=== PATIENT | male | born 1970 | race Caucasian/White ===

== ENCOUNTER → 2016-08-09 | Outpatient (CLI) | payer SELFPAY ==
[~2016-08-09] MED LIST: CIPRODEX 0.3%-7.5 ML OT; MOTRIN800 MG PO; TRIMOX500 MG PO
== END | disposition home or self-care (01) ==
LOC: RESCLI 02:54
DX: E11.65 Type 2 diabetes mellitus with hyperglycemia (principal); I10 Essential (primary) hypertension; N63 Unspecified lump in breast; R74.0 Nonspecific elevation of levels of transaminase and lactic acid dehydrogenase [LDH]; Z71.6 Tobacco abuse counseling; Z72.0 Tobacco use

== ENCOUNTER → 2016-08-17 | Outpatient (CLI) | payer SELFPAY ==
[2016-08-17 07:54] LABS: ALBUMIN 4.1 gm/dl (3.1-4.5); ALKALINE PHOSPHATASE 89 U/L (45-117); BILIRUBIN, DIRECT < 0.1 mg/dL (0.0-0.2); BILIRUBIN, TOTAL 0.5 mg/dl (0.2-1.0); CHOLESTEROL 234 mg/dL (<200); HDL CHOLESTEROL 34 mg/dl (40-60); LDL CHOLESTEROL 168 mg/dL (9-159); SGOT/AST 18 IU/L (3-35); SGPT/ALT 40 U/L (12-78); TOTAL PROTEIN 7.6 gm/dL (6.4-8.2); TRIGLYCERIDES 160 mg/dl (<150); VLDL CHOLESTEROL 32 mg/dL (6-40)
[2016-08-17 08:01] LABS: FREE T4 1.14 ng/dl (0.76-1.46); THYROID STIM HORMONE (HS) 0.916 uIU/ml (0.358-4.75)
[2016-08-17 08:16] LABS: HEMOGLOBIN A1c 8.5 % (4.8-5.6)
== END | disposition home or self-care (01) ==
LOC: LAB 06:51
PROVIDERS: Family Medicine
DX: E11.65 Type 2 diabetes mellitus with hyperglycemia (principal); N63 Unspecified lump in breast; R74.0 Nonspecific elevation of levels of transaminase and lactic acid dehydrogenase [LDH]

== ENCOUNTER → 2016-08-18 | Outpatient (CLI) | payer SELFPAY | END | disposition home or self-care (01) | LOC: US 00:51 | DX: N63 Unspecified lump in breast (principal); E11.65 Type 2 diabetes mellitus with hyperglycemia; R74.0 Nonspecific elevation of levels of transaminase and lactic acid dehydrogenase [LDH] ==

== ENCOUNTER → 2016-08-23 | Outpatient (CLI) | payer SELFPAY | END | disposition home or self-care (01) | LOC: RESCLI 03:52 | DX: I10 Essential (primary) hypertension (principal); E11.9 Type 2 diabetes mellitus without complications; E78.5 Hyperlipidemia, unspecified; Z72.0 Tobacco use; Z71.6 Tobacco abuse counseling ==

== ENCOUNTER → 2016-09-06 | Outpatient (CLI) | payer SELFPAY | END | disposition home or self-care (01) | LOC: RESCLI 04:16 | DX: E11.9 Type 2 diabetes mellitus without complications (principal); I10 Essential (primary) hypertension; E78.5 Hyperlipidemia, unspecified; Z72.0 Tobacco use; Z71.6 Tobacco abuse counseling ==

== ENCOUNTER → 2016-11-21 | Outpatient (CLI) | payer SELFPAY ==
[2016-11-21 08:20] LABS: HEMOGLOBIN A1c 5.9 % (4.8-5.6)
== END | disposition home or self-care (01) ==
LOC: LAB 06:48
PROVIDERS: Internal Medicine
DX: E11.65 Type 2 diabetes mellitus with hyperglycemia (principal)

== ENCOUNTER → 2016-11-29 | Outpatient (CLI) | payer SELFPAY | END | disposition home or self-care (01) | LOC: RESCLI 02:54 | DX: E11.65 Type 2 diabetes mellitus with hyperglycemia (principal); I10 Essential (primary) hypertension; E78.5 Hyperlipidemia, unspecified; Z72.0 Tobacco use; Z71.6 Tobacco abuse counseling ==

== ENCOUNTER → 2017-02-04 | Outpatient (CLI) | payer SELFPAY ==
[2017-02-04 07:41] LABS: HEMOGLOBIN 16.4 g/dl (14.0-18.0); MEAN CELL VOLUME 95.1 fl (80.0-94.0); MEAN CORPUSCULAR HGB 31.8 pg (27.0-31.0); MEAN CORPUSCULAR HGB CONC 33.5 g/dl (33.0-37.0); MEAN PLATELET VOLUME 9.5 fl (9.6-12.3); RED BLOOD COUNT 5.15 10*6/uL (4.50-5.90); RED CELL DISTRI WIDTH 12.6 % (0-14.5); WHITE BLOOD COUNT 13.6 10*3/uL (4.8-10.8)
[2017-02-04 08:10] LABS: ALKALINE PHOSPHATASE 104 U/L (45-117); BUN 20 mg/dl (7-24); CHLORIDE 104 mmol/L (98-107); CHOLESTEROL 214 mg/dL (<200); CREATININE 0.96 mg/dL (0.70-1.30); HDL CHOLESTEROL 37 mg/dl (40-60); LDL CHOLESTEROL 152 mg/dL (9-159); POTASSIUM 4.2 mmol/L (3.5-5.1); SGOT/AST 11 IU/L (3-35); SGPT/ALT 22 U/L (12-78); SODIUM 139 mmol/L (136-145); TOTAL PROTEIN 7.4 gm/dL (6.4-8.2); TRIGLYCERIDES 123 mg/dl (<150); VLDL CHOLESTEROL 25 mg/dL (6-40)
== END | disposition home or self-care (01) ==
LOC: LAB 07:13
PROVIDERS: Internal Medicine
DX: E11.65 Type 2 diabetes mellitus with hyperglycemia (principal)

== ENCOUNTER → 2017-02-07 | Outpatient (CLI) | payer SELFPAY | END | disposition home or self-care (01) | LOC: RESCLI | DX: E11.65 Type 2 diabetes mellitus with hyperglycemia (principal); I10 Essential (primary) hypertension; M19.90 Unspecified osteoarthritis, unspecified site; E78.5 Hyperlipidemia, unspecified; Z72.0 Tobacco use ==

== ENCOUNTER → 2017-03-06 | Outpatient (CLI) | payer SELFPAY | END | disposition home or self-care (01) | LOC: RESCLI 03:36 | DX: E11.65 Type 2 diabetes mellitus with hyperglycemia (principal) ==

== ENCOUNTER → 2017-07-01 | Outpatient (CLI) | payer SELFPAY | END | disposition home or self-care (01) | LOC: LAB 07:48 | DX: E11.65 Type 2 diabetes mellitus with hyperglycemia (principal) ==

== ENCOUNTER → 2017-11-08 | Outpatient (CLI) | payer SELFPAY ==
[2017-11-09 08:09] LABS: HEPATITIS B SURFACE AG Negative (Negative); HEPATITIS C VIRUS ANTIBODY <0.1 s/co (0.0-0.9)
== END | disposition home or self-care (01) ==
LOC: RESCLI 03:40
PROVIDERS: Student in an Organized Health Care Education/Training Program
DX: Z11.2 Encounter for screening for other bacterial diseases (principal); I10 Essential (primary) hypertension; E11.65 Type 2 diabetes mellitus with hyperglycemia; M25.50 Pain in unspecified joint; E78.5 Hyperlipidemia, unspecified; E66.9 Obesity, unspecified; F32.9 Major depressive disorder, single episode, unspecified; F41.9 Anxiety disorder, unspecified; Z72.0 Tobacco use; W57.XXXS Bitten or stung by nonvenomous insect and other nonvenomous arthropods, sequela

== ENCOUNTER → 2017-11-21 | Outpatient (CLI) | payer SELFPAY | END | disposition home or self-care (01) | LOC: RESCLI 03:12 | DX: E78.5 Hyperlipidemia, unspecified (principal); M79.7 Fibromyalgia; E11.65 Type 2 diabetes mellitus with hyperglycemia; R20.8 Other disturbances of skin sensation; I10 Essential (primary) hypertension; M25.50 Pain in unspecified joint; E66.9 Obesity, unspecified; F17.210 Nicotine dependence, cigarettes, uncomplicated; I48.91 Unspecified atrial fibrillation; F32.9 Major depressive disorder, single episode, unspecified; Z79.899 Other long term (current) drug therapy; Z68.30 Body mass index [BMI] 30.0-30.9, adult ==

== ENCOUNTER → 2018-08-15 | Emergency (ER) | payer SELFPAY ==
[~2018-08-15] VITALS: Ht 177.8 cm; Wt 97.5 kg
[~2018-08-15] MED LIST changes: +CYCLOBENZAPRINE10 MG PO; +IBU800 MG PO; +PREDNISONE50 MG PO
[2018-08-15 12:46] VITALS: BP 171/94
== END ==
LOC: ED 12:45
DX: S39.012A Strain of muscle, fascia and tendon of lower back, initial encounter (principal); M54.41 Lumbago with sciatica, right side; I10 Essential (primary) hypertension; E78.5 Hyperlipidemia, unspecified; E11.9 Type 2 diabetes mellitus without complications; X50.0XXA Overexertion from strenuous movement or load, initial encounter; Y93.89 Activity, other specified; Y92.89 Other specified places as the place of occurrence of the external cause; Y99.8 Other external cause status

== ENCOUNTER 2019-03-24 17:43 | Inpatient (IN) | payer SELFPAY ==
[~2019-03-24] VITALS: Ht 172.7 cm; Wt 93.0 kg
--- NOTE | ~2019-03-24 | CON ---
[place], [place] REPORT OF CONSULTATION [id number] #: [id number] ROOM: 416 DOCTOR: PHD CASEY MIRIAM BIRTHDATE: [birth year] DOS: 03/26/2019 HISTORY OF PRESENT ILLNESS: The patient is a 48-year-old male referred by the hospitalist due to the patient's history of bipolar disorder. He has been unmedicated for some time. The patient presented to the ED with hallucinations and agitation. He had been experiencing delusions and hallucinations for about 1 week. The patient lives with his . He has 2 children and is unemployed. He denies alcohol use. He typically smokes 2 packs of cigarettes daily, but has not been able to smoke due to issues with pneumonia for the past 2 weeks. He reports that he vapes marijuana and believes that this caused his lung issues. PAST MEDICAL HISTORY: Bipolar 1 disorder, diabetes, elevated liver enzymes, essential hypertension, fibromyalgia, hyperlipidemia, inflammatory bowel disease, low back strain, muscle spasm. MEDICATIONS: Vitamin D, Solu-Medrol, Protonix, Zestril, Nicoderm, Mucinex, Pulmicort Respules, DuoNeb, Levaquin, Rocephin, morphine sulfate, [place] 5/325, Tamiflu. PHYSICAL EXAMINATION: The patient was lying comfortably in bed, in no apparent distress. He was awake, alert and oriented to person, place and generally to time. Mood was anxious. Affect was restricted in range. He denied suicidal and homicidal ideation, plan, and intent. Speech was within normal limits with respect to rhythm, rate, volume and tone. The patient did not always respond to questions appropriately. Thought process was circumstantial. He reported seeing people standing next to the curtain and sitting in a chair, but was able to recognize them are real. He followed with Dr. Humphrey's office in the past, but has not been receiving mental health treatment for many years. He states he did not like the way the medications made him feel that he was not able to name any medications he had taken. DIAGNOSES: 1. Bipolar 1 disorder. 2. Delirium, not otherwise specified. RECOMMENDATIONS: I discussed the patient with Dr. Valverde. He recommends starting the patient on Latuda 40 mg at bedtime. The patient would benefit from following up with mental health services as an outpatient. Thank you very much for this consult. [place], [place] REPORT OF CONSULTATION NAME: PHILIPP SOSA UNIT #: [id number] ROOM: [facility] DOCTOR: CASEY, PHD MIRIAM BIRTHDATE: [birth year] Rosemary Valiente, PhD CM:CONSTR:REPORT OF CONSULTATION 1659 03/29/19 0843 interface
--- NOTE | ~2019-03-24 | PR ---
[place], [place] PROGRESS NOTE [id number] UN[facility] #: [id number] ROOM: [facility] DOCTOR: STACIE JACKSON MD,FABIEN BIRTHDATE: [birth year] DOS: 03/26/2019 SUBJECTIVE: The patient was seen and examined on 03/26/2019. He has been still reported with symptoms of coughing, chest congestion and also noted with increased wheezing today. Shortness breath was still noted as well. There were no symptoms of chest pain. He does not have symptoms of hemoptysis. He had not been noted with any symptoms of confusion this morning. Comfortably resting on the bed this morning of assessment. The remaining systems were reviewed they were noted all negative. OBJECTIVE: VITAL SIGNS: Temperature noted as normal, curve of temperature has low grade 99.5 degrees Fahrenheit, normal temperature, respiratory rate 23, heart rate of 82, blood pressure 152/75 recorded. Pulse oxygen saturation on 2 liters nasal cannula 96% saturation this morning. HEENT: Examination shows head was atraumatic. Eyes nonicterus. NECK: Supple. CARDIOVASCULAR: S1, S2 audible. LUNGS: Auscultation of chest noted decreased breath sounds bilaterally, diffuse expiratory wheezing noted, which has worsened significantly from the previous exam. ABDOMEN: Soft, nontender. Bowel sounds present. EXTREMITIES: Without any acute edema. MUSCULOSKELETAL: Without any acute deformities. CENTRAL NERVOUS SYSTEM: Noted essentially intact. LABORATORY DATA: CBC of this morning, WBC count 14.8, hemoglobin 11.4, platelet count was normal. The BMP this morning, normal BUN and creatinine. Potassium 3.1. IMPRESSION: 1. Multilobar pneumonia, large consolidation noted left upper lobe lingula with ground glass opacity in other lobes of the lungs. 2. Acute exacerbation of chronic obstructive pulmonary disease was also noted. 3. History of psychiatric problem as well. 4. Chronic heavy nicotine abuse. PLAN OF MANAGEMENT: Continue antibiotics, bronchodilators, and oxygen supplementation. Start the patient on Solu-Medrol 40 mg q. 8 hours because of the active wheezing with acute exacerbation of chronic obstructive pulmonary disease. Continue bronchodilators. Obtain a chest x-ray in the morning PA and lateral view to assess the progression of the pneumonia. Other additional treatment changes will be made based on the available tests, which has been sent to the lab for this patient. Usual care. Other therapy, plan of management, care plan for treatment. [place], [place] PROGRESS NOTE [facility]: [id number] UNIT #: [id number] ROOM: [facility] DOCTOR: STACIE JACKSON MD,FABIEN BIRTHDATE: [birth year] FABIEN QUINONES MD CM:PNTRANS [id number] FABIEN JACKSON MD 03/26/19 1305 interface
--- NOTE | ~2019-03-24 | O ---
[place], [place] OPERATIVE NOTE NAME: PHILIPP SOSA UNIT #: [id number] ROOM: [facility]- DOCTOR: KIZZY HOLLOWAY,SULY BIRTHDATE: [birth year] DOS: 03/27/2019 Today's procedure part of investigation of borderline anemia, abdominal pain is panendoscopy plus biopsy. PREMEDICATION: Propofol. SCOPE: Olympus forward-viewing gastroscope Q10 video. REPORT: After putting the patient in left lateral position and application of lubricant to the scope. The scope was introduced thereafter, under direct visualization, advanced through the length of esophagus into gastric pouch into duodenal bulb. Hiatal hernia seen, gastritis noticed, duodenitis, duodenal erosions and some degraded blood in the duodenum was noticed, photographed. Antrum was biopsied. The patient extubated, tolerated the procedure well. IMPRESSION: Hiatal hernia, duodenitis, duodenal erosion, gastritis. PLAN AND DISCUSSION Carafate 2 grams q.i.d., Protonix 40 mg IV b.i.d. Labs and records have been already reviewed. Hyponatremia has been corrected. Hypokalemia has been corrected. His albumin 2.3. Liver function test elevation at 650 and 185 noticed. Alkaline phosphatase normal, bilirubin has been normal. Basic basic metabolic panel has been corrected. PLAN AND DISCUSSION: Workup in progress. We will follow up. SULY DURAND MD CM:OPRECORD:OPERATIVE NOTE [phone] SULY DURAND MD 03/27/19 2240 interface
--- NOTE | ~2019-03-24 | CON ---
[place], [place] REPORT OF CONSULTATION [id number] UNIT #: [id number] ROOM: [facility] DOCTOR: FABIEN GALE MD BIRTHDATE: [birth year] DOS: 03/25/2019 PULMONARY CONSULTATION, EVALUATION, AND MANAGEMENT CONSULTATION REQUESTED BY: Hospitalist service. REASON FOR CONSULTATION: Assessment of acute pneumonia. HISTORY OF PRESENT ILLNESS: This is a 48-year-old male patient who has been known with past history of nicotine abuse. The patient presented to the Emergency Room on the date of ____ brought by the family members. The patient has been noted with visual hallucinations. He has been noted some change in mental status. The patient came into the Emergency Room by the ambulance. The patient admitted to the hospital for further care. He has been reporting intermittent symptoms of nausea, vomiting as well as black tarry stools are also reported by the patient in the history obtained by the ER physician. He has been noted with cough with some sputum expectoration stated. There were no symptoms of hemoptysis or chest pain stated by the patient. The patient denies any symptoms of chest trauma. REVIEW OF SYSTEMS: CONSTITUTIONAL: The patient has been reported symptoms of fever or chills at home, also complained of some body aches. The patient stated that the body aches have been resolved. Symptoms have been present about 2-3 days. EYES: Denies any burning, discharge, redness or diplopia. EAR, NOSE, THROAT SYMPTOMS: No sore throat, hoarseness, otalgia, postnasal drainage or epistaxis. CARDIOVASCULAR: Denies angina pain, edema, or pain of lower extremities. GASTROINTESTINAL SYMPTOMS: Denies dysphagia, nausea, vomiting, diarrhea, abdominal pain, hematemesis, melena currently, but noted with significant GI symptoms prior to the hospitalization. GENITOURINARY SYMPTOMS: No dysuria, suprapubic pain, or hematuria. MUSCULOSKELETAL: No acute joint pain, redness, or tenderness. SKIN: Denies abnormal lesions or rashes. CENTRAL NERVOUS SYSTEM: No dizziness, headache, diplopia, or syncopal episodes. PSYCHIATRIC: The patient has a known history of bipolar disorder in the past and has been treated for that. PAST MEDICAL HISTORY: The patient reported as history of type 2 diabetes mellitus and bipolar disorder. SOCIAL HISTORY: The patient stated that he lives at home by himself. Tobacco use reported up to 3 packs of cigarettes per day. Stated not smoking cigarettes. The history was questioned. In the ER, the patient has been noted vaping nicotine. He stated he is and has 2 children. PAST SURGICAL HISTORY: None, stated by the patient. FAMILY HISTORY: Unknown. [place], [place] REPORT OF CONSULTATION NAME: PHILIPP SOSA UNIT #: [id number] ROOM: [facility] DOCTOR: FABIEN GALE MD BIRTHDATE: [birth year] HOME MEDICATIONS: None reported. CURRENT MEDICATIONS: Which were administered on this hospitalization were noted as use of IV Rocephin, Zithromax, bronchodilators and some other meds. DRUG ALLERGIES: The patient noted no known drug allergies. PHYSICAL EXAMINATION: GENERAL: A 48-year-old male patient appeared to be awake, alert and oriented at this time of assessment in the Intensive Care Unit. Height of 5 feet 8 inches, weight of 205 pounds, BMI 31 reported by the nursing staff. VITAL SIGNS: Temperature noted 102 degrees Fahrenheit at midnight and on admission temperature 98.9 degree Fahrenheit, respiratory rate recorded 18-25, heart rate 97-107, blood pressure 156/60 to 170/77 recorded. Pulse oxygen saturation at rest on room air was 95%, currently 2 liters nasal cannula 96% saturation. HEENT: Examination shows head was atraumatic. Eyes nonicterus. NECK: Supple. CARDIOVASCULAR: S1, S2 audible. LUNGS: Noted mild diffuse bilateral expiratory wheezing. There were no crackles. ABDOMEN: Soft, nontender. Bowel sounds present. EXTREMITIES: The patient without any edema, clubbing, or cyanosis. MUSCULOSKELETAL: Without acute deformities. CENTRAL NERVOUS SYSTEM: Appeared to be grossly noted intact. LABORATORY DATA: The PT, PTT that was done yesterday was normal. Lactic acid 2.0. The CBC that was done yesterday, WBC count 12.9, hemoglobin and hematocrit normal, platelet count normal, 94% neutrophils, the patient noted the differentials. CMP yesterday, BUN 33, creatinine normal, and glucose 220. Sodium 129, chloride of 97. AST and ALT were noted elevated. Troponin was also elevated minimally at 0.076. Urine drug screen was completed on admission was noted positive for THC. Troponin second set remains minimally elevated. CT scan of the head that was completed yesterday evening in the Emergency Room, was noted without any acute intracranial abnormalities. CMP that was done this morning, his BUN 27 and creatinine normal. Sodium 134, potassium 3.3. Phosphorus was 2.4. Alcohol level yesterday on admission was noted as less than 3. CBC this morning, WBC count 13.4, hemoglobin 12.8, hematocrit 37.3, platelet count was normal, 93% segmented neutrophils. Chest x-ray noted for the patient, acute consolidation changes noted in the left upper lobe. CTA of the chest with diagnosis for pulmonary embolism because of incorrect timing for pulmonary embolus injection. Large area of consolidation noted involving all of the left upper lobe as well as significant part of the lingula. A bronchogram was noted. Patchy ground-glass opacity noted in the right upper lobe, superior segment of the right lower lobe as well. There were no pleural effusions or any significant visible lymph nodes were of any concern. CT scan of the abdomen and pelvis was done yesterday in the Emergency Room was reported, no acute abnormal finding of the CT scan of the abdomen and pelvis. IMPRESSION: The patient with multilobar pneumonia with finding of visual [place], [place] REPORT OF CONSULTATION NAME: PHILIPP SOSA UNIT #: [id number] ROOM: [facility] DOCTOR: STACIE JACKSON MD,[facility] BIRTHDATE: [birth year] hallucination. No change in mental status, evidence of hyponatremia, abnormal LFTs as well as hypophosphatemia, highly suggestive of atypical infection with multilobar involvement, possible Legionella pneumonia would be considered. Other differential to be excluded as a viral infection as influenza pneumonia of viral etiology. However, bacterial pneumonia such as a lobar pneumonia resulting from the streptococcal pneumonia, the patient also remains in consideration. History of chronic nicotine abuse as well. The patient has been also noted with vaping nicotine in the Emergency Room, but denying during this hospitalization upon history assessment. PLAN OF MANAGEMENT: The patient's antibiotic, patient's Bactrim will be changed, use of IV Rocephin and Levaquin will be better adequate coverage. Antiviral therapy will be started for the influenza infection until further exclusion will be done with serum antibiotics for this patient to be done if necessary, but initially is to take the viral swab. Respiratory virus panel will be ordered as well. Nicotine replacement patches to overcome the nicotine withdrawal. If occurred on this admission, bronchodilator ____. Urine for Legionella antigen, strep antigens will be obtained. Sputum for Gram stain culture will be done as well. Monitor all the culture results. Other therapy, plan of management. Additional treatment changes will be made for this patient based on the progression of the illness. Closely monitor the patient's progression of the current pneumonia, multilobar pneumonia, and respiratory status in the Intensive Care Unit as well. If the patient does show any manifestation symptoms of psychosis, certainly Psychiatry consultation will be obtained; however, at this time, is not needed. Thanks for allowing me to participate in the care of this patient. FABIEN QUINONES MD CM:CONSTR:REPORT OF CONSULTATION 1203 03/25/19 1428 interface
--- NOTE | ~2019-03-24 | CON ---
[place], [place] REPORT OF CONSULTATION NAME: PHILIPP SOSA UNIT #: [id number] ROOM: [facility] DOCTOR: SULY DURAND MD BIRTHDATE: [birth year] DOS: 03/27/2019 HISTORY OF PRESENT ILLNESS: A 48-year-old patient who has presented with multiple medical history, among which has been alcohol and nicotine dependency shortness of breath and guaiac positivity and concerns about such nausea, epigastric distress. I have been asked for assessment of the patient regarding possible endoscopy. PAST MEDICAL HISTORY: Associated with fibromyalgia, hyperlipidemia, inflammatory bowel disease, history of Crohn's disease, diabetes mellitus, bipolar disorder, systemic hypertension. MEDICATIONS: List has been reviewed. SOCIAL HISTORY: Smoker, alcohol consumer. FAMILY HISTORY: Noncontributory. PAST SURGICAL HISTORY: None. FAMILY HISTORY: Noncontributory. ALLERGIES: No known medication. REVIEW OF SYSTEMS: HEENT: Denies double vision, blurred vision. RESPIRATORY: Denies acute shortness of breath. CARDIOVASCULAR: Denies chest pain. DIGESTIVE SYSTEM: Epigastric distress, abdominal pain. PHYSICAL EXAMINATION: VITAL SIGNS: Stable. HEENT: Within normal limit. NECK: Supple, no thyromegaly, no cervical lymphadenopathy. CHEST: Symmetric anatomy, equal expansion. No wheeze, no rhonchi. HEART: Normal sinus rhythm, no gallop, no murmur. ABDOMEN: Soft. No hepato-organomegaly. Bowel sounds present. No pulsatile mass. EXTREMITIES: No cyanosis, no pedal edema. NEUROLOGIC: Alert, oriented to time, place, person. LABORATORY DATA: Reviewed. H and H of 11 and 34, white blood cell was 11, platelet 300+. Urinalysis, no bacteria. Basic metabolic periodically reassessed renal status normal. Cultures were within normal limit. PLAN AND DISCUSSION: We are going to proceed with endoscopic assessment of upper tract. Thank you very much [place], [place] REPORT OF CONSULTATION NAME: PHILIPP SOSA UNIT #: [id number] ROOM: [facility] DOCTOR: SULY DURAND MD BIRTHDATE: [birth year] SULY DURAND MD CM:CONSTR:REPORT OF CONSULTATION 1634 03/27/19 2236 interface
--- NOTE | ~2019-03-24 | PR ---
[place], [place] PROGRESS NOTE NAME: PHILIPP SOSA [facility] #: [id number] UNIT #: [id number] ROOM: 416 DOCTOR: STACIE JACKSON MD,FABIEN BIRTHDATE: [birth year] DOS: 03/28/2019 PULMONARY PROGRESS NOTE SUBJECTIVE: The patient noted comfortable at this time without any acute distress this morning of assessment. Urine for Legionella antigen, the patient became aware of, that confirmed the diagnosis of Legionella pneumonia. Denies symptoms of fever or chills, has been doing well with the current treatment. Denies symptoms of hemoptysis, nausea, vomiting, diarrhea, abdominal pain, hematemesis, melena, or hematochezia. Remaining systems were reviewed, they were noted all negative. OBJECTIVE: GENERAL: The patient noted comfortable at this time, sitting on the bed without any distress this morning of assessment. VITAL SIGNS: Blood pressure 152/72, heart rate of 80, respiratory rate 18, temperature noted as normal. The pulse oxygen at rest on room air 98% saturation recorded. HEENT: Examination shows head was atraumatic. Eyes nonicterus. NECK: Supple. CARDIOVASCULAR: S1, S2 is audible. LUNGS: Decreased breath sounds still noted in the left side. Mild expiratory wheezing was present. ABDOMEN: Soft, nontender. Bowel sounds present. EXTREMITIES: Without any acute edema. LABORATORY DATA: The patient's urine Legionella antigen was noted positive. Influenza A antibody noted elevated, but there had not been noted either IgM or IgG, unable to differentiate if there is any acute infection or is a past infection resulting in elevation of the IgG antibodies. IMPRESSION: 1. Resolving acute exacerbation of chronic obstructive pulmonary disease. 2. History of nicotine dependence. PLAN OF MANAGEMENT: Discontinue other antibiotics, Tamiflu has already completed and that will be discontinued as well. If there is any influenza infection will be noted, the patient will need 10-14 days of Levaquin for complete the treatment of the Legionella pneumonia. Obtain a chest x-ray in the morning to assess the progression of the pneumonia prior to consideration of home discharge. Discharge planning was discussed with Dr. Yvon Dahl as well. The dose of steroids continued to be decreased. The Solu-Medrol dose will be decreased to 40 mg daily from b.i.d. dosing from today. [place], [place] PROGRESS NOTE NAME: PHILIPP SOSA UNIT #: [id number] ROOM: 416 DOCTOR: FABIEN GALE MD BIRTHDATE: [birth year] FABIEN QUINONES MD CM:ALEXYS [phone] FABIEN JACKSON MD 03/28/19 1404 interface
--- NOTE | ~2019-03-24 | PR ---
[place], [place] PROGRESS NOTE NAME: PHILIPP SOSA UNIT #: [id number] ROOM: [facility] DOCTOR: FABIEN GALE MD BIRTHDATE: [birth year] DOS: 03/27/2019 SUBJECTIVE: The patient noted comfortable at this time without any acute distress this morning of assessment. He has not been noted symptoms of chest pain. Cough is noted only scant amount of sputum expectoration or symptoms of fever, chills or any hemoptysis. Denies symptoms of nausea, vomiting, diarrhea, abdominal pain, hematemesis, melena, or hematochezia remains in the Intensive Care Unit. Remaining systems were reviewed. They were noted all negative. OBJECTIVE: VITAL SIGNS: Normal temperature, respiratory rate 18, heart rate of 96, blood pressure 137/79. This afternoon, heart rate noted 106 per patient previously. HEENT: Examination shows head was atraumatic. Eyes nonicterus. NECK: Supple. CARDIOVASCULAR: S1, S2 audible. LUNGS: Decreased breath sounds noted on the left side as previously. ABDOMEN: Soft, nontender. Bowel sounds present. EXTREMITIES: No new change. MUSCULOSKELETAL: Chronic deformity. CENTRAL NERVOUS SYSTEM: Intact. LABORATORY DATA: The patient's chest x-ray done this morning showed persistent infiltration previously noted left upper lobe consolidation without interval development of any acute infiltration or pleural effusions. CBC this morning, WBC count 11.3, hemoglobin 11.8, platelet count normal. Culture of the sputum, normal mary. Urine culture noted negative. BMP noted as BUN 26, creatinine was normal. Potassium 3.4. IMPRESSION: 1. The patient with acute multilobar pneumonia consolidation and the patchy infiltration in the lungs noted. 2. Chronic obstructive pulmonary disease. 3. Nicotine dependence. Multiple other medical illnesses as noted stable. PLAN OF MANAGEMENT: No changes in plan of care at this time. Continuation of the current therapy patient as this morning. Usual care. All other supportive plan of management, care plan treatment. [place], [place] PROGRESS NOTE NAME: PHILIPP SOSA UNIT #: [id number] ROOM: [facility] DOCTOR: FABIEN GALE MD BIRTHDATE: [birth year] FABIEN QUINONES MD CM:ALEXYS 2108 FABIEN JACKSON MD 03/28/19 0109 interface
--- NOTE | ~2019-03-24 | EKG ---
[place], [place] ELECTROCARDIOGRAM REPORT NAME: PHILIPP SOSA UNIT #: [id number] ROOM: [facility] DOCTOR: NANI DRAFT REPORT BIRTHDATE: [birth year] [facility] Test Date: 2019-03-24 Test Time: 18:12:12 Pat Name: PHILIPP SOSA Department: Room: [facility] Gender: M [employer]: : 1970 Requested By: KAREN IRVIN Order Number: [id number] Reading MD: Bonnie Rodriguez Measurements Intervals [place] Rate: 104 P: 53 [place]: 135 QRS: 93 QRSD: 105 T: 30 QT: 342 QTc: 450 Interpretive Statements Sinus tachycardia Borderline right axis deviation ST elev, probable normal early repol pattern Baseline wander in lead(s) V4 Electronically Signed On 03-25-2019 11:15:25 PST by Bonnie Rodriguez CM:EKGRPT:ELECTROCARDIOGRAM REPORT 1812 1115 KAREN CARDOZA DRAFT REPORT KAREN IRVIN MD
--- NOTE | ~2019-03-24 | PR ---
[place], [place] PROGRESS NOTE [id number] UNIT #: [id number] ROOM: 416 DOCTOR: STACIE JACKSON MD,FABIEN BIRTHDATE: [birth year] DOS: 03/29/2019 SUBJECTIVE: The patient noted comfortable at this time, resting on the bed this morning of assessment, has not been noted symptoms of fever or chills. Coughing has improved. There were no symptoms of chest pain or hemoptysis. OBJECTIVE: VITAL SIGNS: For the patient which were recorded this morning has a normal temperature, respiratory rate 18, heart rate 89, blood pressure 170/72. Pulse oxygen saturation at rest on room air 91% saturation. HEENT: Examination shows head was atraumatic. Eyes nonicterus. NECK: Supple. CARDIOVASCULAR: S1, S2 audible. LUNGS: The patient noted without any wheeze or crackles. ABDOMEN: Soft, nontender. Bowel sounds present. EXTREMITIES: No new change. LABORATORY DATA: Urine for legionella antigen noted positive. Chest x-ray done this morning noted resolving large consolidation of the left upper lobe and lingula. IMPRESSION: 1. Resolving acute Legionella pneumonia with acute influenza infection as well, but not considered to have acute pneumonia and Legionella. 2. The patient with chronic obstructive pulmonary disease and nicotine dependence. PLAN OF TREATMENT: The patient could be discharged home on oral tapering dose of prednisone, antibiotics as Levaquin is the preferred drug. Total of 14 days of treatment was advised. Outpatient followup was advised in the next couple of weeks. FABIEN QUINONES MD CM:PNTRANS [id number] FABIEN JACKSON MD 03/29/19 1645 interface
[2019-03-24 17:43] VITALS: BP 152/84
[2019-03-24 18:10] LABS: HEMOGLOBIN 14.3 g/dl (14.0-18.0); MEAN CELL VOLUME 87.1 fl (80.0-94.0); MEAN CORPUSCULAR HGB 31.2 pg (27.0-31.0); MEAN CORPUSCULAR HGB CONC 35.8 g/dl (33.0-37.0); MEAN PLATELET VOLUME 10.8 fl (9.6-12.3); PLATELET COUNT AUTOMATED 194 10*3/uL (130-400); RED BLOOD COUNT 4.59 10*6/uL (4.50-5.90); RED CELL DISTRI WIDTH 12.8 % (0-14.5); WHITE BLOOD COUNT 12.9 10*3/uL (4.8-10.8)
[2019-03-24 18:21] LABS: ACT PARTIAL THROMBO TIME 27.9 SECONDS (20.0-32.1); INTERNATIONAL NORM RATIO 1.1 (2.0-3.5)
[2019-03-24 18:27] LABS: ALBUMIN 2.3 gm/dl (3.1-4.5); ALKALINE PHOSPHATASE 92 U/L (45-117); BUN 33 mg/dl (7-24); CHLORIDE 97 mmol/L (98-107); POTASSIUM 3.7 mmol/L (3.5-5.1); SGOT/AST 657 IU/L (3-35); SGPT/ALT 185 U/L (12-78); SODIUM 129 mmol/L (136-145); TOTAL PROTEIN 6.1 gm/dL (6.4-8.2)
[2019-03-24 18:29] LABS: TROPONIN I 0.076 ng/ml (<0.045)
[2019-03-24 18:32] LABS: TOTAL CELLS COUNTED 100 #CELLS
[2019-03-24 18:33] LABS: PLATELET SUFFICIENCY NORMAL (NORMAL); THYROID STIM HORMONE (HS) 0.341 uIU/ml (0.358-4.75)
[2019-03-24 18:35] LABS: ETHYL ALCOHOL < 3.0 mg/dl (<3)
[2019-03-24 19:05] LABS: BILIRUBIN NEGATIVE (NEGATIVE); BLOOD 3+ (NEGATIVE); CLARITY SL CLOUDY (CLEAR); COLOR YELLOW (YELLOW); GLUCOSE 3+ (NEGATIVE); KETONE NEGATIVE (NEGATIVE); LEUKO ESTERASE NEGATIVE (NEGATIVE); NITRITE NEGATIVE (NEGATIVE); PH 6.5 (5.0-9.0); UROBILINOGEN 0.2 E.U./dl (0.2-1.0)
[2019-03-24 19:11] LABS: BACTERIA 1+; MUCOUS 1+
[2019-03-24 19:15] LABS: URINE AMPHETAMINES < 1000 (1000ng/ml); URINE BARBITURATES < 200 (200ng/ml); URINE BENZODIAZEPINES < 200 (200ng/ml); URINE CANNABINOIDS (THC) > 50 (50ng/ml); URINE COCAINE < 300 (300ng/ml); URINE METHADONE < 300 (300ng/ml); URINE OPIATES < 300 (300ng/ml); URINE PHENCYCLIDINE < 25 (25ng/ml)
[2019-03-24 19:59] VITALS: BP 132/77
[2019-03-24 21:18] VITALS: BP 142/73
[2019-03-24 21:30] VITALS: BP 156/62
--- NOTE | 2019-03-24 21:30 | NUR ---
A 48yr old male, admitted to ICCU, under the services of KEV Madrigal DO with a diagnosis of Transaminitis, Hyponatremia, Sepsis, Hallucinations, Anxiety. Chief complaint is brought in by family for hallucinations and not eating/drinking for several days. Patient arrived via stretcher from ER. Monitor applied. Initial assessment completed. Vital signs taken and recorded. See assessment for past medical history, medications and allergies. Patient and/or family oriented to unit. [facility] visitation policy reviewed. Clothing/patient valuable form completed. TRINI CARIAS L
--- NOTE | 2019-03-24 21:50 | NUR ---
[facility] ON [facility] NOTIFIED OF DR IAN GRANT.
--- NOTE | 2019-03-24 22:18 | NUR ---
DR LACY WAS NOTIFIED OF TROPONIN #2 OF 0.082 AND VERIFIED IV FLUIDS/SEPSIS BOLUS.
--- NOTE | 2019-03-24 22:26 | NUR ---
PER DR REGINO HAYNES TO NOTIFY DR DURAND OF CONSULT IN AM, UNLESS CT ABNORMAL OR CHANGE IN STATUS.
--- NOTE | 2019-03-24 22:35 | NUR ---
NASAL O2 APPLIED FOR PT'S COMFORT/TACHYPNEA.
--- NOTE | 2019-03-24 22:50 | NUR ---
DR LACY NOTIFIED OF CT BRAIN, CTA, AND CT ABD/PELVIS REPORTS. PT HAS WHEEZING. ORDERS RECEIVED.
--- NOTE | 2019-03-24 23:41 | NUR ---
ASSISTED TO STAND TO USE URINAL. UNSTEADY ON HIS FEET. HIS MOVEMENTS ARE JERKY AND UNCOORDINATED. HE'S TACHYPNEIC WITH EXERTION. VS TAKEN. TEMP 102.6. TWO TYLENOL BY MOUTH. 3RD AND FINAL LITER OF SEPSIS BOLUS SALINE UP TO INFUSE. ASSISTED TO POSITION OF COMFORT
[2019-03-25] VITALS: BP 152/77
--- NOTE | 2019-03-25 00:26 | NUR ---
PT QUIET AT PRESENT BUT HAS YELLED OUT AT TIMES SAYING "THERE'S A MAN WITHOUT A SHIFT OVER THERE". SEPSIS FLUID BOLUSES HAVE COMPLETED. HAD ONE LITER IN ER AND 2 LITERS IN ICCU SINCE ADMISSION. PT IN CONSTANT VIEW OF STAFF.
--- NOTE | 2019-03-25 00:28 | NUR ---
TROPONIN #3 EXACTLY THE SAME TROPONIN #2.
--- NOTE | 2019-03-25 00:37 | NUR ---
DR LACY NOTIFIED OF EARLIER TEMP ELEVATION AND PT'S CONTINUED HALLUCINATORY BEHAVIOR.
--- NOTE | 2019-03-25 02:48 | NUR ---
PT IS RESTING QUIETLY IN BED, NOT RESTLESS, BUT HASN'T SLEPT SINCE ADMISSION.
--- NOTE | 2019-03-25 03:43 | NUR ---
PT AWAKE, TAPPING/?TEXTING ON HIS CELLPHONE. SAYS HE'S TALKING WITH HIS . HE IS MENTIONING A LITTLE GIRL HE'S BEEN SEEING. SAYS "SHE A LONG TIME AGO". AND ADDS "JUST BECAUSE YOU CAN'T SEE HER DOESN'T MEAN SHE ISN'T THERE". ATTEMPTING TO REORIENT AND PRESENT REALITY NEEDED. AUDIBLE WHEEZE CONTINUES.
[2019-03-25 03:49] VITALS: BP 109/66
[2019-03-25 06:01] LABS: HEMATOCRIT 37.3 % (42.0-52.0); HEMOGLOBIN 12.8 g/dl (14.0-18.0); MEAN CELL VOLUME 89.7 fl (80.0-94.0); MEAN CORPUSCULAR HGB 30.8 pg (27.0-31.0); MEAN CORPUSCULAR HGB CONC 34.3 g/dl (33.0-37.0); MEAN PLATELET VOLUME 10.9 fl (9.6-12.3); PLATELET COUNT AUTOMATED 201 10*3/uL (130-400); RED BLOOD COUNT 4.16 10*6/uL (4.50-5.90); RED CELL DISTRI WIDTH 13.2 % (0-14.5); WHITE BLOOD COUNT 13.4 10*3/uL (4.8-10.8)
--- NOTE | 2019-03-25 06:15 | NUR ---
PT'S SISTER CALLED (WITH PASSWORD) SAYING PT HAS BEEN TEXTING HER "WEIRD STUFF" ALL NIGHT. PT UPSET, NOW CHANGING HIS PASSWORD TO "TAFFY".
[2019-03-25 06:36] LABS: ALBUMIN 2.1 gm/dl (3.1-4.5); ALKALINE PHOSPHATASE 79 U/L (45-117); BUN 27 mg/dl (7-24); CHLORIDE 103 mmol/L (98-107); CHOLESTEROL 96 mg/dL (<200); CREATININE 0.96 mg/dL (0.70-1.30); HDL CHOLESTEROL 8 mg/dl (40-60); LDL CHOLESTEROL 36 mg/dL (9-159); PHOSPHOROUS 2.4 mg/dL (2.5-4.9); POTASSIUM 3.3 mmol/L (3.5-5.1); SGOT/AST 682 IU/L (3-35); SGPT/ALT 193 U/L (12-78); SODIUM 134 mmol/L (136-145); TOTAL PROTEIN 5.6 gm/dL (6.4-8.2); TRIGLYCERIDES 262 mg/dl (<150); VLDL CHOLESTEROL 52 mg/dL (6-40)
[2019-03-25 06:41] LABS: THYROID STIM HORMONE (HS) 0.483 uIU/ml (0.358-4.75)
--- NOTE | 2019-03-25 07:17 | NUR ---
ATTEMPTED TO CALL CONSULT TO DR DURAND, LEFT VOICEMAIL TO CALL ABOUT A NEW CONSULT.
[2019-03-25 07:29] LABS: VITAMIN D, 25-HYDROXY 10.3 ng/mL (30-100)
--- NOTE | 2019-03-25 07:42 | NUR ---
PT MEDICATED WITH TYLENOL 650MG PO FOR TEMP OF 102.2
[2019-03-25 08:00] VITALS: BP 158/74
--- NOTE | 2019-03-25 08:10 | NUR ---
Occupational therapy orders received as well as nursing screen. Will follow up with patient for completion of OT eval and POC. Jessa Dumont OTR/L
[2019-03-25 08:15] LABS: PLATELET SUFFICIENCY NORMAL (NORMAL); TOTAL CELLS COUNTED 100 #CELLS
--- NOTE | 2019-03-25 09:07 | NUR ---
DR QUINONES MADE AWARE OF NEW CONSULT ORDER AND IN TO SEE PT AT THIS TIME. NEW ORDERS RECEIVED.
--- NOTE | 2019-03-25 11:12 | NUR ---
PT'S TEMP DOWN TO 99.1 AFTER TYLENOL GIVEN.
[2019-03-25 11:18] VITALS: BP 170/77
--- NOTE | 2019-03-25 13:39 | NUR ---
unavailable at this time for aerosol, rerfuse earlier
--- NOTE | 2019-03-25 14:39 | NUR ---
Service Person in to talk to patient. Patient states lives at HOME with . There are FEW steps in the home. Physician: NONE PER PT Pharmacy: [facility] health services: NONE Patient's level of ADLs: INDEPENDENT Patient has working utilities: YES DME: NONE Follow-up physician's appointment after d/c: WILL BE MADE BY HOSPITALIST NURSE DIRECTOR ON DISCHARGE Does patient want to access PORTAL?: NO Discharge plan PT STATES HE LIVES AT HOME WITH HIS AND THAT HE IS INDEPENDENT IN HIS CARE. DENIES HE WILL HAVE NEEDS ON DISCHARGE AT THIS TIME. PT DOES GO OFF SUBJECT FREQUENTLY WHILE ASKING HIM QUESTIONS AND HAS TO BE REDIRECTED. WILL CONTINUE TO FOLLOW. STATES HE WILL HAVE A RIDE HOME.. KAMINI OTOOLE
[2019-03-25 16:00] VITALS: BP 147/77
[2019-03-25 20:00] VITALS: BP 146/73
--- NOTE | 2019-03-25 23:40 | NUR ---
UP TO [facility] FOR URINE AND LIQUID STOOL MIXED.
[2019-03-26] VITALS: BP 152/80
--- NOTE | 2019-03-26 01:15 | NUR ---
PT WAS TALKING OUT LOUD TO HIMSELF AND BECOMING VERY LOUD AND AGITATED. HE WAS COMPLETELY IRATE, PULLING OFF MONITOR PATCHES, AND YELLING AT STAFF. "THE DEPUTY ADMINISTRATOR FROM [facility] IS IN THAT CORNER DOING THE INVESTIGATION! I CAN'T BREATHE AND YOU ALL PULLED THAT CURTAIN AND THREW THAT PAINT ON ME. (REFERRING TO BLANKET) GIVE ME THAT... THAT'S EVIDENCE!" DR LACY NOTIFIED.
--- NOTE | 2019-03-26 01:52 | NUR ---
PT CONTINUES TO TALK TO HIMSELF AND IN THE RT CORNER.
--- NOTE | 2019-03-26 02:25 | NUR ---
PT APPEARS TO BE SLEEPING.
--- NOTE | 2019-03-26 06:50 | NUR ---
PT WITH EYES CLOSED BUT WHEN LAB ARRIVED, PT WOULD NOT ALLOW ME TO REPLACE LEADS AND THE VOTATOR MACHINE OPERATOR TO DRY...SWEARING OUT LOUD AND SNORTING WHILE PULLING GOWN DOWN.
[2019-03-26 08:00] VITALS: BP 153/75
[2019-03-26 08:23] LABS: BASO % 0.1 % (0.0-1.0); EOS # 0.2 10*3/uL (0.0-0.4); EOS % 1.1 % (1.0-4.0); HEMATOCRIT 32.9 % (42.0-52.0); HEMOGLOBIN 11.4 g/dl (14.0-18.0); LYMPH # 1.2 10*3/uL (1.3-4.4); LYMPH % 8.3 % (27.0-41.0); MEAN CELL VOLUME 90.6 fl (80.0-94.0); MEAN CORPUSCULAR HGB 31.4 pg (27.0-31.0); MEAN CORPUSCULAR HGB CONC 34.7 g/dl (33.0-37.0); MEAN PLATELET VOLUME 10.8 fl (9.6-12.3); MONO # 0.7 10*3/uL (0.1-1.0); MONO % 4.4 % (3.0-9.0); NEUT # 12.7 10*3/uL (2.3-7.9); NEUT % 85.4 % (47.0-73.0); PLATELET COUNT AUTOMATED 252 10*3/uL (130-400); RED BLOOD COUNT 3.63 10*6/uL (4.50-5.90); RED CELL DISTRI WIDTH 13.4 % (0-14.5); WHITE BLOOD COUNT 14.8 10*3/uL (4.8-10.8)
--- NOTE | 2019-03-26 08:28 | NUR ---
PT AWAKENS WITH STIMULI. PT ABLE TO ANSWER ORIENTATION QUESTIONS APPROPRIATELY. HOWEVER, PT CONTINUES TO EXPERIENCE VISUAL AND AUDITORY HALLUCINATIONS. PT MUMBLES QUITE FREQUENTLY TO HIMSELF. PT PLEASANT AND COOPERATIVE AT THIS TIME. VSS. DIFFUSE RHONCHI AND WHEEZING NOTED THROUGHOUT LUNG PALMER. MOIST COUGH NOTED. PT STATES IT IS PRODUCTIVE AT TIMES OF VILLAGRAN COLORED SPUTUM. ABD. SOFT WITH ACTIVE BOWEL SOUNDS. PT DENIES COMPLAINTS AT THIS TIME. WILL CONTINUE TO MONITOR PT.
[2019-03-26 08:49] LABS: BUN 22 mg/dl (7-24); CHLORIDE 105 mmol/L (98-107); CREATININE 0.75 mg/dL (0.70-1.30); POTASSIUM 3.1 mmol/L (3.5-5.1); SODIUM 136 mmol/L (136-145)
--- NOTE | 2019-03-26 09:10 | NUR ---
DR QUINONES IN TO SEE PT. NEW ORDERS RECEIVED.
--- NOTE | 2019-03-26 10:30 | NUR ---
DR MINA IN TO SEE PT. NEW ORDERS RECEIVED.
[2019-03-26 12:00] VITALS: BP 141/84
--- NOTE | 2019-03-26 15:46 | NUR ---
PT'S SISTERS IN TO VISIT WITH PT EARLIER. UPDATED THEM ON PT'S CONDITION AND PLAN OF CARE.
[2019-03-26 16:00] VITALS: BP 151/89
--- NOTE | 2019-03-26 16:00 | NUR ---
DR BENJAMIN IN TO SEE PT EARLIER THIS AFTERNOON. DR BENJAMIN THEN SPOKE WITH DR SOSA REGARDING PT. DR SOSA SUGGESTED LATUDA 40MG PO QHS. DR BENJAMIN UPDATED DR MINA.
--- NOTE | 2019-03-26 16:28 | NUR ---
PT RESTING. PT DENIES COMPLAINTS AT THIS TIME. NO ACUTE DISTRESS NOTED.
--- NOTE | 2019-03-26 18:26 | NUR ---
PT AND FAMILY UPDATED ON PLAN FOR EGD IN AM. THEIR QUESTIONS WERE ANSWERED. ANESTHESIA QUESTIONNAIRE COMPLETED. PT'S FAMILY IN TO VISIT WITH HIM.
[2019-03-26 20:00] VITALS: BP 151/89
--- NOTE | 2019-03-26 20:11 | NUR ---
PT PLEASANT, STATES "I WANT TO APOLOGIZE FOR YELLING AT YOU LAST NIGHT. I WAS HALLUCINATING AND DIDN'T KNOW WHAT WAS GOING ON." VSS. NO ACUTE DISTRESS.
[2019-03-27] VITALS (9 sets, daily range): BP systolic 100–162; BP diastolic 48–98
--- NOTE | 2019-03-27 00:51 | NUR ---
PT IS PLEASANT BUT CONTINUES TO HALLUCINATE AND DESCRIBE, IN DETAIL, WHAT HE IS SEEING....WHILE POINTING TO "THE 3 KIDS WHO JUST GOT SHOT" UP IN THE OVERHEAD LIGHTS. PT KNOWS WHERE HE IS AND WHAT SURGERY HE IS HAVING IN THE MORNING. HE IS NPO AFTER MIDNIGHT.
--- NOTE | 2019-03-27 01:35 | NUR ---
PT WIDE AWAKE AND HYPER. SET UP FOR BATH WITH HIBICLENS FOR OR THIS AM.
--- NOTE | 2019-03-27 03:52 | NUR ---
PT WALKING AROUND BED, CLAIMING THAT HE JUST TALKED TO HIS MOTHER (AND GESTURES TO CORNER). HE GETS LOUD AND ARGUMENTATIVE WITH STAFF AND THEN APOLOGIZES. EMOTIONAL SUPPORT GIVEN.
[2019-03-27 05:12] LABS: BUN 26 mg/dl (7-24); CHLORIDE 109 mmol/L (98-107); CREATININE 0.78 mg/dL (0.70-1.30); POTASSIUM 3.4 mmol/L (3.5-5.1); SODIUM 141 mmol/L (136-145)
[2019-03-27 06:53] LABS: BASO % 0.2 % (0.0-1.0); HEMATOCRIT 34.7 % (42.0-52.0); HEMOGLOBIN 11.8 g/dl (14.0-18.0); LYMPH # 0.8 10*3/uL (1.3-4.4); LYMPH % 7.4 % (27.0-41.0); MEAN CELL VOLUME 91.1 fl (80.0-94.0); MEAN PLATELET VOLUME 10.7 fl (9.6-12.3); MONO # 0.5 10*3/uL (0.1-1.0); MONO % 4.6 % (3.0-9.0); NEUT # 9.8 10*3/uL (2.3-7.9); RED BLOOD COUNT 3.81 10*6/uL (4.50-5.90); RED CELL DISTRI WIDTH 13.8 % (0-14.5); WHITE BLOOD COUNT 11.3 10*3/uL (4.8-10.8)
[2019-03-27 06:55] LABS: PLATELET COUNT AUTOMATED 344 10*3/uL (130-400)
--- NOTE | 2019-03-27 07:23 | NUR ---
Shift chart check completed.24 HR chart check completed.
--- NOTE | 2019-03-27 07:30 | NUR ---
TO XRAY WITH TRANSPORT, ON PORTABLE MONITOR, FOR CXR. INSTRUCTIONS NOT TO LEAVE PT ALONE DUE TO HIS HISTORY OF HALLUCINATIONS SINCE ADMISSION.
--- NOTE | 2019-03-27 08:18 | NUR ---
HAS RETURNED FROM [facility]. PT IS ABLE TO SAY HE'S IN [facility]. WHO THE PRESIDENT IS, THAT IT'S MORNING AND HE'S GOING TO HAVE "UPPER GI" TODAY. HE MUMBLES ALMOST CONTINUALLY, THINKS WATER IS COMING FROM THE CEILING. HE'S DISCONNECTED HIS MONITOR AND IS WALKING THROUGHOUT THE ICCU. INSTRUCTED TO RECONNECT HIMSELF AND STAY IN BED AND HE COOPERATES TO DO THIS. REMINDED NOTHING TO EAT OR DRINK UNTIL AFTER PROCEDURE TODAY. SEE ALL APPROPRIATE INTERVENTIONS.
--- NOTE | 2019-03-27 08:33 | NUR ---
TALKED WITH ANESTHESIA ABOUT MORNING MEDS. OKAY TO GIVE K-DUR BUT HOLD THE LISINOPRIL.
--- NOTE | 2019-03-27 10:22 | NUR ---
Occupational therapy orders received and OT evaluation completed in full on the ICCU. Patient precautions include fall risk, cane use, heart monitor, and patient demonstrated minimal confusion. Per OT eval, patient would benefit from an inpatient/acute rehab due to his age and functional status. Patient complexity is moderate, [id number]. Thank you for the referral. Jessa Dumont, OTR/L
--- NOTE | 2019-03-27 10:52 | NUR ---
SPEECH PATHOLOGY Nursing screen completed. Speech pathology services are not indicated at this time. This dept. will be available if future needs arise. SANDRA LEY MSCCC-BULK INTAKE WORKER
--- NOTE | 2019-03-27 10:55 | NUR ---
PT HAD VISITORS. HE TALKS/INTERACTS WITH THEM WITHOUT OBVIOUS HALLUCINATIONS HE DOES WHEN NO ONE AROUND THE BED. SWABS PROVIDED FOR C/O DRY MOUTH DUE TO NPO FOR EGD TODAY.
--- NOTE | 2019-03-27 11:28 | NUR ---
PT INSTRUCTED ON USE OF FLUTTER VALVE. PT DEMONSTRATED PROPER TECHNUQUE. PT INSTRUCTED TO USE Q 1-2 HRS X 10 W/A.
--- NOTE | 2019-03-27 13:00 | NUR ---
PHYSICAL THERAPY Pt seen in CCU Physical Therapy Evaluation completed. Full details and evaluation to follow. Moderate level of complexity determied after evaluation and chart review, [id number]. PT will work on tranfers, ambulation with appropriate AD, balance and endurance, stair training as appropriate. Recommending in-patient rehab at discharge. Thank you! Celia Garcia, PT, DPT
--- NOTE | 2019-03-27 13:18 | NUR ---
PT'S FAMILY WAS THINKING THAT PT WAS SCHEDULED TO HAVE HIS EGD AT 10AM TODAY. EXPLANATIONS GIVEN THAT DR DURAND HAS NOT ARRIVED IN THE HOSPITAL YET. PT IS AGITATED BECAUSE OF NPO STATUS. SURGERY SAYS THAT DR DURAND HAS NOT ARRIVED YET. PT HAS SWABS AT THE BEDSIDE.
--- NOTE | 2019-03-27 13:45 | NUR ---
THERAPY AMBULATED PT DURING WHICH HE CLAIMED "EVERYTHING CLOUDY". NO HR CHANGE. BP UPON SITTING DOWN 140/98. PULSE OX ON ROOM AIR 89% AFTER THE WALK. NASAL O2 APPLIED AT 2L WITH QUICK RECOVERY OF PULSE OX TO 95%.
--- NOTE | 2019-03-27 14:26 | NUR ---
PT PLANS TO GO HOME ON DISCHARGE. DR SOSA TO SEE PT. WILL CONTINUE TO FOLLOW.
--- NOTE | 2019-03-27 14:40 | NUR ---
PT CONTINUES TO REST.
--- NOTE | 2019-03-27 15:11 | NUR ---
PT TO OR VIA BED, ON PORTABLE MONITOR, WITH SURGERY PERSONNEL.
--- NOTE | 2019-03-27 17:35 | NUR ---
RETURNED FROM EGD. ALERT, RECOGNIZES ME FROM EARLIER TODAY. PLACED IN CCU-4 TO ATTEMPT TO HAVE MORE PRIVACY, QUIETER LATER AND MAYBE CAN SLEEP TONIGHT. EXPLANATIONS ABOUT FULL LIQUID DIET TONIGHT AND BLAND DIET STARTING TOMORROW MORNING. PRESENT AND UPDATED ALSO.
--- NOTE | 2019-03-27 18:57 | NUR ---
DR QUINONES HAS VISITED.
--- NOTE | 2019-03-27 19:59 | NUR ---
PATIENT SITTING UP IN BED, AT BEDSIDE. PATIENT ALERT AND ORIENTED. DENIES ANY PAIN OR OTHER NEEDS AT THIS TIME. PATIENT STATED THAT HE IS READY FOR BED AND WANTS TO SLEEP TONIGHT. PATIENT DENIES ANY HALLUCINATIONS AT THIS POINT. PATIENT LEFT WITH CALL LIGHT IN REACH.
--- NOTE | 2019-03-27 22:32 | NUR ---
24 HR chart check completed.
[2019-03-28] VITALS: BP 161/87
[2019-03-28 00:07] LABS: INFLUENZA A ANTIBODIES 1:32 (Neg:<1:8); INFLUENZA B ANTIBODIES Negative (Neg:<1:8)
[2019-03-28 06:19] LABS: BUN 29 mg/dl (7-24); CHLORIDE 108 mmol/L (98-107); CREATININE 0.79 mg/dL (0.70-1.30); POTASSIUM 4.2 mmol/L (3.5-5.1); SODIUM 142 mmol/L (136-145)
[2019-03-28 06:21] LABS: BASO % 0.1 % (0.0-1.0); HEMATOCRIT 33.4 % (42.0-52.0); HEMOGLOBIN 11.2 g/dl (14.0-18.0); LYMPH # 1.3 10*3/uL (1.3-4.4); LYMPH % 10.8 % (27.0-41.0); MEAN CELL VOLUME 93.8 fl (80.0-94.0); MEAN CORPUSCULAR HGB 31.5 pg (27.0-31.0); MEAN CORPUSCULAR HGB CONC 33.5 g/dl (33.0-37.0); MEAN PLATELET VOLUME 10.3 fl (9.6-12.3); MONO # 0.6 10*3/uL (0.1-1.0); MONO % 4.5 % (3.0-9.0); NEUT # 10.3 10*3/uL (2.3-7.9); NEUT % 83.3 % (47.0-73.0); PLATELET COUNT AUTOMATED 418 10*3/uL (130-400); RED BLOOD COUNT 3.56 10*6/uL (4.50-5.90); RED CELL DISTRI WIDTH 14.1 % (0-14.5); WHITE BLOOD COUNT 12.3 10*3/uL (4.8-10.8)
[2019-03-28 07:54] VITALS: BP 152/72
--- NOTE | 2019-03-28 09:55 | NUR ---
Spoke with Stefania in lab regarding test results for Flu. She is going to contact lab where sample was sent.
--- NOTE | 2019-03-28 11:05 | NUR ---
PT STATES HE WANTS TO GO HOME AND WILL HAVE NO NEEDS. WILL CONTINUE TO FOLLOW.
--- NOTE | 2019-03-28 11:15 | NUR ---
OT NOTE Pt was seen this A.M. 1:1 for 15 minute OT session. Upon arrival pt was supine in bed. Pt identified by name and and had no complaints at this time. Pt transferred supine to sit EOB with SBA. Sit to stand completed from the bed level with CGA for safety due to quick rise resulting in unsteady stance that was able to be self corrected. Educated pt on slowing down for enhanced safety. Functional mobility was then completed into the bathroom with CGA for safety. There he transferred on/off standard commode with SBA. Pt then stood sink side while washing his hands with SBA for safety. Functional mobility then completed back to the EOB where he was left sitting upright with call light in hand, tray table in place, and phone in reach. Continue with POC as able. AYANNA Wilson/Carmelo
--- NOTE | 2019-03-28 11:29 | NUR ---
PHYSICAL THERAPY Patient presented to therapy in supine with head of bed elevated and bed alarm activated. Patient was identifed by name and on wristband. Patient gives informed consent for treatment. Patient performed supine to sitting at EOB transfer with SBA. Patient sat on EOB unassisted. Patient performed sit to stand with SBA. Patient performed ambulation with NO ASSISTIVE DEVICE and Close Supervision for 600+ ft x 1 with no LOB and only minimal SOB. Patient's O2 SAT at 300' distance was 94% and pulse 98. Patient is not on spO2. Patient transferred back to supine in bed with SBA. Patient was left in supine with head of bed elevated and call light within reach. Patient was 1:1 with this SOUND EQUIPMENT MECHANIC for 17 minutes total. BLAYNE CHRISTIAN SOUND EQUIPMENT MECHANIC
[2019-03-28 12:00] VITALS: BP 147/93
[2019-03-28 16:00] VITALS: BP 119/52
[2019-03-28 20:00] VITALS: BP 152/75
[2019-03-28 22:06] LABS: ADENOVIRUS Negative (Negative); INFLUENZA A Negative (Negative); INFLUENZA B Negative (Negative); METAPNEUMOVIRUS Negative (Negative); PARAINFLUENZA 1 Negative (Negative); PARAINFLUENZA 2 Negative (Negative); PARAINFLUENZA 3 Negative (Negative); RHINOVIRUS Negative (Negative); RSV A Negative (Negative); RSV B Negative (Negative)
[2019-03-29] VITALS: BP 154/63
--- NOTE | 2019-03-29 04:08 | NUR ---
24 HR chart check completed.
--- NOTE | 2019-03-29 07:55 | NUR ---
PHYSICAL THERAPY Patient seen this am 1:1 for therapy visit and was sitting up on EOB upon therapist arrival. Patient identified by name / and was very pleasant this morning. Patient reports no new c/o's and had just finished his breathing treatment prior to therapist arrival. Patient transfers CGA x 1 and ambulates CGA, 50'x 2, demonstrated intial increased gait velocity, requiring v/c to slow down to safer simon. Patient able to walk backwards 5' x 2, demonstrating mild LOB secondary to looking down at floor while stepping. Patient returned to EOB sit following treatment with only mild fatigue, stating he feels stronger each day. Patient remained EOB sit with call light and cell phone. Will continue per POC as tolerated, total treatment time 16 minutes. Reji Bruno, ELECTROMECHANICAL TECHNOLOGIST
[2019-03-29 08:00] VITALS: BP 160/72
--- NOTE | 2019-03-29 08:00 | NUR ---
OT NOTE Pt was seen this A.M. 1:1 for 15 minute OT session. Upon arrival pt was supine in bed. Pt identified by name and and had no complaints at this time. Pt transferred supine to sit EOB with SBA. While sitting EOB pt donned B shoes with SBA. Sit to stand completed from bed level [facility] CGA for safety, pt stood with a quick rise which he had one LOB backwards that required Jonny to correct and had complaint of feeling light headed when standing. Educated pt on slow rise and visual fixation technique. Functional mobility completed to the bathroom and back with CGA and use of straight cane for UE support. Pt had bouts of impulsive behaviors and unsteady gait that required Jonny to correct. Pt transferred on/off standard commode with SBA for safety and continued to present with quick rise. Challenged pt's dynamic standing tolerance needed for increased I in self care tasks and improved endurance, pt was able to tolerate aprox 5 minutes before sitting due to fatigue. Throughout entire session pt's SpO2 remained within functional limits. Pt was left sitting upright on the EOB with call light in hand and tray table in place. Continue with POC as able. AYANNA Wilson/Carmelo
--- NOTE | 2019-03-29 08:30 | NUR ---
Patient resting quietly with no c/o discomfort. Respirations easy and regular. Vital signs stable. No overt distress. RADHIKA WATSON R
[2019-03-29 08:42] LABS: ALBUMIN 2.4 gm/dl (3.1-4.5); ALKALINE PHOSPHATASE 103 U/L (45-117); BUN 25 mg/dl (7-24); CHLORIDE 105 mmol/L (98-107); CREATININE 0.76 mg/dL (0.70-1.30); POTASSIUM 4.3 mmol/L (3.5-5.1); SGOT/AST 202 IU/L (3-35); SGPT/ALT 234 U/L (12-78); SODIUM 138 mmol/L (136-145); TOTAL PROTEIN 5.7 gm/dL (6.4-8.2)
[2019-03-29] MEDS ORDERED: PROTONIX40 MG PO (09:40)
[2019-03-29] MEDS ORDERED: LATU40TA PO (09:40)
[2019-03-29] MEDS ORDERED: CARAFATE1 GM PO (09:40)
[2019-03-29] MEDS ORDERED: LEVOFLOXACIN750 M2 PO (09:40)
[2019-03-29] MEDS ORDERED: LISINOPRIL20 MG PO (09:40)
[2019-03-29] MEDS ORDERED: VITAMIN D32000 UNI1 PO (09:40)
[2019-03-29] MEDS ORDERED: MUCINEX ER600 MG PO (09:40)
[2019-03-29] MEDS ORDERED: HYDROCHLOROTH12.5 M2 PO (09:41)
--- NOTE | 2019-03-29 10:37 | NUR ---
Discharge instructions reviewed with patient/family. Patient receptive and verbalizes understanding. Follow-up care arranged. Written instructions given to patient/family. RADHIKA WATSON
--- NOTE | 2019-03-29 15:21 | NUR ---
PHYSICAL THERAPY CO-SIGN I approve of the Physical Therapy notes written above. Sue Mckenna PT
--- NOTE | 2019-04-02 07:54 | NUR ---
OCCUPATIONAL THERAPY CO-SIGN I approve of the Occupational Therapy notes written above. KEVIN JAMISON OTR/Carmelo
== END 2019-03-29 10:37 | disposition home or self-care (01) | DRG 871 ==
LOC: ED 17:43 → ICCU 19:05 → EDHOLD 19:05 → ICCU 19:51 → 4E 03-28 06:28
PROVIDERS: Emergency Medicine; Hospitalist; Internal Medicine; Internal Medicine Critical Care Medicine; Student in an Organized Health Care Education/Training Program; ADMIT Emergency Medicine
PROC: 0DB68ZX Excision of Stomach, Via Natural or Artificial Opening Endoscopic, Diagnostic (ICD-10-PCS; principal; 2019-03-27)
DX: A41.9 Sepsis, unspecified organism (principal); J18.9 Pneumonia, unspecified organism; E43 Unspecified severe protein-calorie malnutrition; K26.4 Chronic or unspecified duodenal ulcer with hemorrhage; A48.1 Legionnaires' disease; G93.41 Metabolic encephalopathy; J10.08 Influenza due to other identified influenza virus with other specified pneumonia; K29.71 Gastritis, unspecified, with bleeding; K29.81 Duodenitis with bleeding; E87.1 Hypo-osmolality and hyponatremia; J44.1 Chronic obstructive pulmonary disease with (acute) exacerbation; J44.0 Chronic obstructive pulmonary disease with (acute) lower respiratory infection; E83.41 Hypermagnesemia; E11.65 Type 2 diabetes mellitus with hyperglycemia; R65.20 Severe sepsis without septic shock; E78.5 Hyperlipidemia, unspecified; I10 Essential (primary) hypertension; R31.9 Hematuria, unspecified; K44.9 Diaphragmatic hernia without obstruction or gangrene; E78.1 Pure hyperglyceridemia; F41.9 Anxiety disorder, unspecified; E55.9 Vitamin D deficiency, unspecified; E83.39 Other disorders of phosphorus metabolism; R74.0 Nonspecific elevation of levels of transaminase and lactic acid dehydrogenase [LDH]; F22 Delusional disorders; E87.6 Hypokalemia; F31.9 Bipolar disorder, unspecified; M79.7 Fibromyalgia; Z83.3 Family history of diabetes mellitus; Z83.6 Family history of other diseases of the respiratory system; Z68.31 Body mass index [BMI] 31.0-31.9, adult

== ENCOUNTER → 2019-04-03 | Outpatient (CLI) | payer SELFPAY ==
[~2019-04-03] MED LIST changes: +CARAFATE1 GM PO; +HYDROCHLOROTH12.5 M2 PO; +LATU40TA PO; +LEVOFLOXACIN750 M2 PO; +LISINOPRIL20 MG PO; +MUCINEX ER600 MG PO; +PROTONIX40 MG PO; +VITAMIN D32000 UNI1 PO
[2019-04-03 15:50] LABS: HEMATOCRIT 42.4 % (42.0-52.0); HEMOGLOBIN 14.1 g/dl (14.0-18.0); MEAN CELL VOLUME 94.4 fl (80.0-94.0); MEAN CORPUSCULAR HGB 31.4 pg (27.0-31.0); MEAN CORPUSCULAR HGB CONC 33.3 g/dl (33.0-37.0); MEAN PLATELET VOLUME 9.4 fl (9.6-12.3); PLATELET COUNT AUTOMATED 424 10*3/uL (130-400); RED BLOOD COUNT 4.49 10*6/uL (4.50-5.90); RED CELL DISTRI WIDTH 13.3 % (0-14.5); WHITE BLOOD COUNT 14.4 10*3/uL (4.8-10.8)
[2019-04-03 16:12] LABS: ALBUMIN 2.8 gm/dl (3.1-4.5); ALKALINE PHOSPHATASE 128 U/L (45-117); BUN 31 mg/dl (7-24); CHLORIDE 100 mmol/L (98-107); CREATININE 0.86 mg/dL (0.70-1.30); POTASSIUM 4.4 mmol/L (3.5-5.1); SGOT/AST 30 IU/L (3-35); SGPT/ALT 96 U/L (12-78); SODIUM 134 mmol/L (136-145); TOTAL PROTEIN 6.9 gm/dL (6.4-8.2)
[2019-04-03 16:24] LABS: ATYPICAL LYMPHS 1 % (0-0); BASOPHILS 1 % (0-1); TOTAL CELLS COUNTED 100 #CELLS
[2019-04-03 16:25] LABS: PLATELET SUFFICIENCY HIGH (NORMAL)
[2019-04-03 16:26] LABS: BURR CELLS FEW
== END | disposition home or self-care (01) ==
LOC: RESCLI 00:20
PROVIDERS: Internal Medicine Nephrology
DX: E11.65 Type 2 diabetes mellitus with hyperglycemia (principal); I10 Essential (primary) hypertension; J18.9 Pneumonia, unspecified organism; E78.5 Hyperlipidemia, unspecified; M19.90 Unspecified osteoarthritis, unspecified site; M79.7 Fibromyalgia; R74.0 Nonspecific elevation of levels of transaminase and lactic acid dehydrogenase [LDH]; Z72.0 Tobacco use; Z79.899 Other long term (current) drug therapy

== ENCOUNTER → 2020-01-30 | Outpatient (CLI) | payer SELFPAY | END | disposition home or self-care (01) | LOC: RESCLI 14:11 | PROVIDERS: ATTEND Internal Medicine | DX: E11.65 Type 2 diabetes mellitus with hyperglycemia (principal); I10 Essential (primary) hypertension; E78.5 Hyperlipidemia, unspecified; F31.9 Bipolar disorder, unspecified; E55.9 Vitamin D deficiency, unspecified; Z79.899 Other long term (current) drug therapy; Z98.890 Other specified postprocedural states; F17.200 Nicotine dependence, unspecified, uncomplicated ==

== ENCOUNTER → 2020-02-05 | Outpatient (CLI) | payer SELFPAY ==
[2020-02-05 08:27] LABS: HEMATOCRIT 50.5 % (42.0-52.0); MEAN CELL VOLUME 92.5 fl (80.0-94.0); MEAN CORPUSCULAR HGB 30.6 pg (27.0-31.0); MEAN CORPUSCULAR HGB CONC 33.1 g/dl (33.0-37.0); MEAN PLATELET VOLUME 9.1 fl (9.6-12.3); PLATELET COUNT AUTOMATED 296 10*3/uL (130-400); RED BLOOD COUNT 5.46 10*6/uL (4.50-5.90); RED CELL DISTRI WIDTH 13.2 % (0-14.5); WHITE BLOOD COUNT 12.7 10*3/uL (4.8-10.8)
[2020-02-05 08:51] LABS: ALBUMIN 3.8 gm/dl (3.1-4.5); ALKALINE PHOSPHATASE 118 U/L (45-117); BUN 21 mg/dl (7-24); CHLORIDE 106 mmol/L (98-107); CHOLESTEROL 283 mg/dL (<200); CREATININE 0.96 mg/dL (0.70-1.30); HDL CHOLESTEROL 31 mg/dl (40-60); LDL CHOLESTEROL 199 mg/dL (9-159); SGOT/AST 16 IU/L (3-35); SGPT/ALT 32 U/L (12-78); SODIUM 138 mmol/L (136-145); TOTAL PROTEIN 7.5 gm/dL (6.4-8.2); TRIGLYCERIDES 265 mg/dl (<150); VLDL CHOLESTEROL 53 mg/dL (6-40)
[2020-02-05 11:00] LABS: BASOPHILS 1 % (0-1); PLATELET SUFFICIENCY NORMAL (NORMAL); TOTAL CELLS COUNTED 100 #CELLS
== END | disposition home or self-care (01) ==
LOC: LAB 08:00
PROVIDERS: Student in an Organized Health Care Education/Training Program; ATTEND Internal Medicine
DX: I10 Essential (primary) hypertension (principal); E78.5 Hyperlipidemia, unspecified; E55.9 Vitamin D deficiency, unspecified; E11.65 Type 2 diabetes mellitus with hyperglycemia

== ENCOUNTER → 2020-02-06 | Outpatient (CLI) | payer SELFPAY | END | disposition home or self-care (01) | LOC: RESCLI 00:44 | PROVIDERS: ATTEND Internal Medicine Nephrology | DX: E11.65 Type 2 diabetes mellitus with hyperglycemia (principal); I10 Essential (primary) hypertension; E78.5 Hyperlipidemia, unspecified; F31.9 Bipolar disorder, unspecified; E55.9 Vitamin D deficiency, unspecified; Z72.0 Tobacco use; Z79.899 Other long term (current) drug therapy ==

== ENCOUNTER → 2020-03-04 | Outpatient (CLI) | payer SELFPAY | END | disposition home or self-care (01) | LOC: RESCLI 00:36 | PROVIDERS: ATTEND Family Medicine | DX: E55.9 Vitamin D deficiency, unspecified (principal); E11.65 Type 2 diabetes mellitus with hyperglycemia; G47.00 Insomnia, unspecified; F31.9 Bipolar disorder, unspecified; I10 Essential (primary) hypertension; E78.5 Hyperlipidemia, unspecified; F17.210 Nicotine dependence, cigarettes, uncomplicated; Z71.6 Tobacco abuse counseling; Z23 Encounter for immunization; Z98.890 Other specified postprocedural states ==

== ENCOUNTER → 2020-04-30 | Outpatient (CLI) | payer SELFPAY | END | disposition home or self-care (01) | LOC: RESCLI 00:35 | PROVIDERS: ATTEND Internal Medicine Nephrology | DX: G47.00 Insomnia, unspecified (principal); E11.65 Type 2 diabetes mellitus with hyperglycemia; F31.9 Bipolar disorder, unspecified; I10 Essential (primary) hypertension; E55.9 Vitamin D deficiency, unspecified; E78.5 Hyperlipidemia, unspecified; D72.829 Elevated white blood cell count, unspecified; Z71.6 Tobacco abuse counseling; Z79.899 Other long term (current) drug therapy; Z98.890 Other specified postprocedural states; F17.210 Nicotine dependence, cigarettes, uncomplicated ==

== ENCOUNTER 2022-09-20 12:51 | Emergency (ER) | payer SELFPAY ==
[~2022-09-20] VITALS: Ht 177.8 cm; Wt 99.8 kg
[2022-09-20 13:05] VITALS: BP 135/59
== END 2022-09-20 13:51 | disposition left against medical advice (07) ==
LOC: ED 12:51
DX: H93.13 Tinnitus, bilateral (principal); Z53.21 Procedure and treatment not carried out due to patient leaving prior to being seen by health care provider

== ENCOUNTER 2024-05-14 09:13 | Inpatient (IN) | payer SELFPAY ==
[~2024-05-14] VITALS: Ht 177.8 cm; Wt 100.0 kg
[2024-05-14] VITALS (9 sets, daily range): BP systolic 129–209; BP diastolic 53–91
[2024-05-14] MEDS ORDERED: Ondansetron Hydrochloride 4 MG/2 ML VIAL IV ONE (09:35)
[2024-05-14] MEDS ORDERED: MORPHINE Sulfate 2 MG/ML SYR IV ONE (09:35)
[2024-05-14] MEDS ORDERED: SODIUM CHLORIDE 0.9% 1,000 ML IV ONE ×3 (09:35→10:35)
[2024-05-14] MEDS ORDERED: Ketamine Hydrochloride 500 MG/10 ML VIAL IV ONE (09:50)
[2024-05-14] MEDS ORDERED: Midazolam Hydrochloride 2 MG/2 ML VIAL IV ONE (09:55)
[2024-05-14] MEDS ORDERED: Lidocaine Hydrochloride 30 ML VIAL IM ONE (10:00)
[2024-05-14 10:08] LABS: BASO # 0.1 10*3/uL (0.0-0.1); BASO % 0.5 % (0.0-1.0); EOS # 0.1 10*3/uL (0.0-0.4); EOS % 0.5 % (1.0-4.0); MEAN CELL VOLUME 89.9 fl (80.0-94.0); MEAN CORPUSCULAR HGB CONC 34.5 g/dl (33.0-37.0); MEAN PLATELET VOLUME 9.9 fl (9.6-12.3); MONO # 1.4 10*3/uL (0.1-1.0); MONO % 8.3 % (3.0-9.0); NEUT # 11.1 10*3/uL (2.3-7.9); NEUT % 67.4 % (47.0-73.0); PLATELET COUNT AUTOMATED 352 10*3/uL (130-400); RED BLOOD COUNT 5.45 10*6/uL (4.50-5.90); RED CELL DISTRI WIDTH 12.2 % (0-14.5); WHITE BLOOD COUNT 16.5 10*3/uL (4.8-10.8)
[2024-05-14] MEDS ORDERED: Piperacillin Sodium/Tazobact 50 ML IV ONE (10:35)
[2024-05-14] MEDS ORDERED: Vancomycin Hydrochloride 250 ML IV ONE (10:35)
[2024-05-14] MEDS ORDERED: BISACODYL 10 MG SUPP R PRN (11:15)
[2024-05-14] MEDS ORDERED: ACETAMINOPHEN 325 MG TAB PO PRN (11:15)
[2024-05-14] MEDS ORDERED: Ondansetron Hydrochloride 4 MG/2 ML VIAL IV PRN (11:15)
[2024-05-14] MEDS ORDERED: Acetaminophen/Hydrocodone 5 MG/325 MG TABLET PO PRN (11:15)
[2024-05-14] MEDS ORDERED: ACETAMINOPHEN 650 MG SUPP R PRN (11:15)
[2024-05-14] MEDS ORDERED: BISACODYL 5 MG TAB PO PRN (11:15)
[2024-05-14] MEDS ORDERED: Magnesium Hydroxide 30 ML UDC PO PRN (11:15)
[2024-05-14] MEDS ORDERED: MORPHINE Sulfate 2 MG/ML SYR IV PRN (11:15)
[2024-05-14 11:40] LABS: BUN 25 mg/dl (9-23); CHLORIDE 91 mmol/L (98-107)
[2024-05-14] MEDS ORDERED: Piperacillin Sodium/Tazobact 50 ML IV SCH (16:00)
[2024-05-14] MEDS ORDERED: DEXTROSE 10 % IN WATER 250 ML IV PRN (16:50)
[2024-05-14] MEDS ORDERED: Nicotine 14 MG PATCH T SCH (16:50)
[2024-05-14] MEDS ORDERED: INSULIN LISPRO 1 UNIT/0.01 ML SQ SCH ×2 (17:30→22:00)
[2024-05-14 20:54] LABS: BUN 19 mg/dl (9-23); CHLORIDE 102 mmol/L (98-107)
[2024-05-14] MEDS ORDERED: METFORMIN850 MG PO (20:54)
[2024-05-14 20:56] LABS: POTASSIUM 3.9 mmol/L (3.4-5.1)
[2024-05-15] VITALS: BP 130/58
[2024-05-15] MEDS ORDERED: VANCOMYCIN/WATER FOR INJ (PEG) 250 ML IV SCH
[2024-05-15 06:21] LABS: HEMATOCRIT 49.2 % (42.0-52.0); MEAN CELL VOLUME 91.1 fl (80.0-94.0); MEAN CORPUSCULAR HGB 31.3 pg (27.0-31.0); MEAN CORPUSCULAR HGB CONC 34.3 g/dl (33.0-37.0); MEAN PLATELET VOLUME 9.3 fl (9.6-12.3); PLATELET COUNT AUTOMATED 319 10*3/uL (130-400); RED CELL DISTRI WIDTH 12.3 % (0-14.5); WHITE BLOOD COUNT 13.3 10*3/uL (4.8-10.8)
[2024-05-15 06:34] LABS: MANUAL DIFF REFLEX YES
[2024-05-15 06:48] LABS: ALKALINE PHOSPHATASE 175 U/L (46-116); BUN 17 mg/dl (9-23); CHLORIDE 100 mmol/L (98-107); CHOLESTEROL 274 mg/dL (<200); FREE T4 1.29 ng/dl (0.89-1.76); POTASSIUM 4.8 mmol/L (3.4-5.1); SGPT/ALT 56 U/L (5-49); TOTAL PROTEIN 6.9 gm/dL (6.0-8.0); TRIGLYCERIDES 467 mg/dl (<150)
[2024-05-15 07:14] LABS: ACT PARTIAL THROMBO TIME 26.5 SECONDS (20.0-32.1)
[2024-05-15 07:53] LABS: ATYPICAL LYMPHS 4 % (0-0); PLATELET SUFFICIENCY NORMAL (NORMAL); TOTAL CELLS COUNTED 100 #CELLS
[2024-05-15 08:00] VITALS: BP 160/76
[2024-05-15 09:58] LABS: VITAMIN D, 25-HYDROXY 15.5 ng/mL (30-100)
[2024-05-15] MEDS ORDERED: Enoxaparin Sodium 40 MG/0.4 ML SYR SC SCH (10:00)
[2024-05-15] MEDS ORDERED: AMOX-CLAV 875-1 EACH PO (13:43)
[2024-05-17 05:06] LABS: HEMOGOLBIN A1C >15.5 % (4.8-5.6)
== END 2024-05-15 11:40 | disposition left against medical advice (07) | DRG 854 ==
LOC: ED 09:13 → EDHOLD 10:54 → 4E 10:54 → EDHOLD 11:59 → 4E 19:30
PROVIDERS: Emergency Medicine; Student in an Organized Health Care Education/Training Program; ADMIT Internal Medicine; ATTEND Internal Medicine
PROC: 0D9P0ZZ Drainage of Rectum, Open Approach (ICD-10-PCS; principal; 2024-05-14)
PROC: 0H99XZZ Drainage of Perineum Skin, External Approach (ICD-10-PCS; 2024-05-14)
DX: A41.9 Sepsis, unspecified organism (principal); E87.1 Hypo-osmolality and hyponatremia; K61.1 Rectal abscess; M79.7 Fibromyalgia; R65.20 Severe sepsis without septic shock; F31.9 Bipolar disorder, unspecified; E78.5 Hyperlipidemia, unspecified; E11.65 Type 2 diabetes mellitus with hyperglycemia; K52.9 Noninfective gastroenteritis and colitis, unspecified; Z53.29 Procedure and treatment not carried out because of patient's decision for other reasons; I10 Essential (primary) hypertension; F12.90 Cannabis use, unspecified, uncomplicated; F17.210 Nicotine dependence, cigarettes, uncomplicated; Z82.49 Family history of ischemic heart disease and other diseases of the circulatory system; Z83.3 Family history of diabetes mellitus; Z82.3 Family history of stroke; Z88.8 Allergy status to other drugs, medicaments and biological substances

== ENCOUNTER 2024-05-20 09:12 | Inpatient (IN) | payer SELFPAY ==
[~2024-05-20] VITALS: Ht 177.8 cm; Wt 97.1 kg
[~2024-05-20 09:12] MED LIST changes: +AMOX-CLAV 875-1 EACH PO; +METFORMIN850 MG PO
[2024-05-20 09:41] VITALS: BP 116/48
[2024-05-20 10:23] LABS: BASO # 0.1 10*3/uL (0.0-0.1); BASO % 0.6 % (0.0-1.0); EOS # 0.2 10*3/uL (0.0-0.4); EOS % 1.8 % (1.0-4.0); HEMATOCRIT 47.8 % (42.0-52.0); MEAN CELL VOLUME 91.6 fl (80.0-94.0); MEAN CORPUSCULAR HGB CONC 33.9 g/dl (33.0-37.0); MEAN PLATELET VOLUME 9.2 fl (9.6-12.3); MONO # 0.6 10*3/uL (0.1-1.0); MONO % 5.5 % (3.0-9.0); NEUT # 5.6 10*3/uL (2.3-7.9); NEUT % 52.7 % (47.0-73.0); PLATELET COUNT AUTOMATED 392 10*3/uL (130-400); RED BLOOD COUNT 5.22 10*6/uL (4.50-5.90); WHITE BLOOD COUNT 10.6 10*3/uL (4.8-10.8)
[2024-05-20 10:42] LABS: BUN 23 mg/dl (9-23); CHLORIDE 98 mmol/L (98-107); POTASSIUM 4.2 mmol/L (3.4-5.1)
[2024-05-20] MEDS ORDERED: Vancomycin Hydrochloride 250 ML IV ONE (11:00)
[2024-05-20] MEDS ORDERED: BISACODYL 10 MG SUPP R PRN (12:55)
[2024-05-20] MEDS ORDERED: ACETAMINOPHEN 650 MG SUPP R PRN (12:55)
[2024-05-20] MEDS ORDERED: Magnesium Hydroxide 30 ML UDC PO PRN (12:55)
[2024-05-20] MEDS ORDERED: BISACODYL 5 MG TAB PO PRN (12:55)
[2024-05-20] MEDS ORDERED: ACETAMINOPHEN 325 MG TAB PO PRN (12:55)
[2024-05-20] MEDS ORDERED: Ondansetron Hydrochloride 4 MG/2 ML VIAL IV PRN (12:55)
[2024-05-20] MEDS ORDERED: TEMAZEPAM 15 MG CAP PO PRN (12:55)
[2024-05-20] MEDS ORDERED: DEXTROSE 10 % IN WATER 250 ML IV PRN (13:55)
[2024-05-20] MEDS ORDERED: Loperamide Hydrochloride 2 MG CAP PO PRN (14:55)
[2024-05-20] MEDS ORDERED: Nicotine 21 MG PATCH T SCH (16:00)
[2024-05-20 16:23] VITALS: BP 104/50
[2024-05-20] MEDS ORDERED: INSULIN LISPRO 1 UNIT/0.01 ML SQ SCH (16:30)
[2024-05-20 16:35] LABS: BILIRUBIN Negative (Negative); BLOOD Negative (Negative); CLARITY Clear (Clear); COLOR Yellow (Yellow); GLUCOSE 3+ (Negative); KETONE 2+ (Negative); LEUKO ESTERASE Negative (Negative); NITRITE Negative (Negative); PH 5.5 (4.5-8.0); SPECIFIC GRAVITY >= 1.030 (1.001-1.030); UROBILINOGEN 0.2 E.U./dl (0.0-1.0)
[2024-05-20 16:47] LABS: EPITHELIAL CELLS 0-2; HYALINE CAST 0-2; WBC 0-2 wbc/hpf (0-5)
[2024-05-20] MEDS ORDERED: Insulin Glargine, Recombinan 1 UNIT/0.01 ML SC SCH (18:00)
[2024-05-20] MEDS ORDERED: VANCOMYCIN/WATER FOR INJ (PEG) 300 ML IV SCH (20:00)
[2024-05-21] MEDS ORDERED: Pantoprazole Sodium 40 MG TAB PO SCH (06:00)
[2024-05-21] MEDS ORDERED: Enoxaparin Sodium 40 MG/0.4 ML SYR SC SCH (10:00)
[2024-05-21] MEDS ORDERED: ATORVASTATIN CALCIUM 40 MG TABLET PO SCH (10:00)
== END 2024-05-20 18:23 | disposition left against medical advice (07) | DRG 641 ==
LOC: ED 09:12 → EDHOLD 11:07
PROVIDERS: Internal Medicine; ADMIT Internal Medicine; ATTEND Internal Medicine
DX: E87.1 Hypo-osmolality and hyponatremia (principal); E11.9 Type 2 diabetes mellitus without complications; I10 Essential (primary) hypertension; E78.5 Hyperlipidemia, unspecified; F31.9 Bipolar disorder, unspecified; F17.210 Nicotine dependence, cigarettes, uncomplicated; B96.89 Other specified bacterial agents as the cause of diseases classified elsewhere; E11.65 Type 2 diabetes mellitus with hyperglycemia; F12.90 Cannabis use, unspecified, uncomplicated; R19.7 Diarrhea, unspecified; Z53.29 Procedure and treatment not carried out because of patient's decision for other reasons; Z79.899 Other long term (current) drug therapy; Z79.01 Long term (current) use of anticoagulants; Z79.2 Long term (current) use of antibiotics; Z80.0 Family history of malignant neoplasm of digestive organs; Z82.3 Family history of stroke; Z91.199 Patient's noncompliance with other medical treatment and regimen due to unspecified reason